=== PATIENT | female | born 2000 | race Two or more races ===

== ENCOUNTER 2024-03-30 04:08 | Inpatient (IN) | payer OTHER, SELFPAY ==
[2024-03-30] VITALS (86 sets, daily range): BP systolic 94–127; BP diastolic 52–81; PULSE 71–217; RESP 16–20; TEMP 36.6–37.2; O2SAT 89–100; BMI 27.3
--- NOTE | 2024-03-30 05:19 | LDADM ---
This patient, Codie Mayer, was admitted to Labor/Delivery/Recovery 106 on 03/30/24 at 04:08. Plans for labor, pain management and were discussed with patient. Patient/family oriented to hospital policies and general routines including ID bracelet, bed and alarms, visiting hours, pain management, procedures, bathroom and other care routines, personal items, smoking policy, room service/diet and guest tray routines, infant security routines, and visiting hours. Patient/Family are encouraged to report perceived risks to care and to ask questions if they do not understand what they are told or what they should do. See OBIX for further documentation.
[2024-03-30 05:22] LABS: Basophils Percent Auto 0.3 % (0.2-1.2); Eosinophils Percent Auto 0.3 % (0-4.4); Hematocrit 31.2 % (37.0-47.0); Hemoglobin 10.3 g/dL (12.0-15.0); Immature Granulocyte Absolute 0.11 K/mm3 (0.00-0.031); Lymphocytes Percent Auto 16.1 % (18.3-44.2); Mean Corpuscular Hemoglobin 24.9 pg (26-34); Mean Corpuscular Volume 75.4 fl (80-100); Mean Platelet Volume 10.2 fl (7.4-10.4); Monocytes Absolute Auto 0.5 K/mm3 (0.1-0.6); Monocytes Percent Auto 4.6 % (2.6-8.5); Neutrophils Absolute Auto 8.7 K/mm3 (1.3-6.7); Neutrophils Percent Auto 77.7 % (45.5-73.1); Platelet Count Result 206 k/mm3 (150-375); Red Blood Count 4.14 M/mm3 (4.2-5.4); Red Cell Distribution Width 13.6 % (11.5-14.5); White Blood Count 11.2 K/mm3 (4.5-10.0)
[2024-03-30] MEDS: fentaNYL CITRATE INJ (*CRX) 100 MCG/2 ML VIAL 50 MCG IV PUSH ×3 (05:45→07:53)
[2024-03-30] MEDS: ONDANSETRON INJ 4 MG/2 ML VIAL IV PUSH (07:57)
--- NOTE | 2024-03-30 10:34 | PM.IMHP ---
H&P: HPI History of Present Illness Date/Time: 03/30/24 10:34 Chief Complaint: labor Narrative: Patient is a 23 year old who presents at 39w4d for regular contractions starting at 2300 last night. She denies LOF or VB. Good movement. has been complicated by anemia, patient declines IV Fe infusions after failing PO Fe supplementation. OTherwise uncomplicated . Denies headaches, vision changes, chest pain, dyspnea, RUQ pain or epigastric pain. Review of Systems Review of Systems: All systems reviewed & are unremarkable except as noted in HPI and below PMFSH Family History Family History Other Patient denies significant medical history Social History Social History Smoking status: Never smoker Second hand tobacco smoke exposure: No Substance use: never Do You Feel Safe in your Home?: Yes Lack of Transportation: No Lack of Food: Never True Current Housing: I Have Housing Concerned About Future Housing: No Difficulty Paying Gas/Electric Bills: No Difficulty Paying for Meds: No Currently Unemployed: No Education: High School Diploma/GED Difficulty w/ Childcare or Family Care: No Spiritual care concerns: No Meds Home Medications and Allergies Home Medications Medication Instructions Recorded Confirmed Type prenat.vits,tangela,[id number] 1 tablet 03/06/24 History Allergies Allergy/AdvReac Type Severity Reaction Status Date / Time No Known Allergies Allergy Verified 02/27/24 09:46 Vital Signs Vital Signs - 24 hr 03/30/24 04:29 03/30/24 04:44 03/30/24 05:41 Temperature Pulse Rate 96 103 H Respiratory Rate Blood Pressure 112/70 109/80 Pulse Oximetry 100 03/30/24 05:44 03/30/24 05:46 03/30/24 05:49 Temperature Pulse Rate 108 H Respiratory Rate Blood Pressure 94/52 L Pulse Oximetry 98 100 100 03/30/24 05:54 03/30/24 05:59 03/30/24 06:04 Temperature Pulse Rate 96 Respiratory Rate Blood Pressure 107/77 Pulse Oximetry 97 98 100 03/30/24 06:09 03/30/24 06:14 03/30/24 06:19 Temperature Pulse Rate 92 Respiratory Rate Blood Pressure 104/81 Pulse Oximetry 99 95 100 03/30/24 06:22 03/30/24 06:27 03/30/24 06:29 Temperature Pulse Rate 99 Respiratory Rate Blood Pressure 106/79 Pulse Oximetry 100 99 03/30/24 06:32 03/30/24 06:37 03/30/24 06:42 Temperature Pulse Rate Respiratory Rate Blood Pressure Pulse Oximetry 100 99 99 03/30/24 06:44 03/30/24 06:47 03/30/24 06:52 Temperature Pulse Rate 80 Respiratory Rate Blood Pressure 102/64 Pulse Oximetry 98 98 03/30/24 06:57 03/30/24 06:59 03/30/24 07:02 Temperature Pulse Rate 84 Respiratory Rate Blood Pressure 107/69 Pulse Oximetry 98 99 03/30/24 07:07 03/30/24 07:12 03/30/24 07:14 Temperature Pulse Rate 102 H Respiratory Rate Blood Pressure 114/73 Pulse Oximetry 96 99 03/30/24 07:17 03/30/24 07:00 03/30/24 07:33 Temperature 97.8 F Pulse Rate Respiratory Rate 18 Blood Pressure Pulse Oximetry 100 99 03/30/24 07:38 03/30/24 07:45 03/30/24 07:50 Temperature Pulse Rate Respiratory Rate Blood Pressure Pulse Oximetry 99 96 96 03/30/24 07:55 03/30/24 08:00 03/30/24 08:05 Temperature Pulse Rate Respiratory Rate Blood Pressure Pulse Oximetry 98 95 96 03/30/24 08:10 03/30/24 08:15 03/30/24 08:20 Temperature Pulse Rate Respiratory Rate Blood Pressure Pulse Oximetry 95 95 95 03/30/24 08:25 03/30/24 08:30 03/30/24 08:35 Temperature Pulse Rate Respiratory Rate Blood Pressure Pulse Oximetry 96 96 95 03/30/24 08:40 03/30/24 08:45 03/30/24 08:50 Temperature Pulse Rate Respiratory Rate Blood Pressure Pulse Oximetry 99 96 97 03/30/24 08:55 03/03
[2024-03-30] MEDS: OXYTOCIN 30 UNITS/NS 500 ML 30 UNITS/500 ML BAG 999 UNITS IV CONT (12:58)
--- NOTE | 2024-03-30 13:28 | PM.OBPRVD ---
OB - Vaginal Delivery Note Procedure Delivery date: 03/30/24 Delivery augmentation: Rupture of Membranes Delivery monitor: External FHT and External Uterine Route of delivery: Episiotomy description: None Laceration Description: Periurethral (hemostatic) Specimen: No Quantitative Blood Loss (ml): 150 Anesthesia type: None Disposition: Floor Complications: No immediate complications Narrative: See H&P and notes for details on patient's admission and labor. She progressed to complete cervical dilation and at the appropriate time began pushing. With adequate expulsive efforts by the mother, the baby's head was delivered without difficulty. Nuchal cord was not present. The baby's right shoulder was anterior and delivered under the pubic symphysis without difficulty. The posterior shoulder and the rest of the baby delivered without difficulty. The umbilical cord was doubly clamped and cut after 60 seconds of delayed cord clamping. Care of the was then assumed by the nursing staff. Mother and are at this time in stable condition and doing well. Baby Date of : 03/30/24 Weeks of gestation at delivery: 39 gender: Female presentation: vertex position: Left Occiput Anterior Placenta delivery description: Spontaneous Cord Vessel Description: 3 Vessels
[2024-03-30] MEDS: OXYTOCIN 30 UNITS/NS 500 ML 30 UNITS/500 ML BAG 125 UNITS IV CONT (13:33)
[2024-03-30 14:28] LABS: Rapid Plasma Reagin Non-Reactive (NonReactive)
[2024-03-30] MEDS: BENZOCAINE 20% AER SPR (*SP) 56 GM CAN 1 SPRAY TOPICAL (15:04)
[2024-03-30] MEDS: WITCH HAZEL 40 PADS 1 PAD TOPICAL (15:04)
--- NOTE | 2024-03-30 15:25 | PC.NURSE ---
Patient transferred to post room #292 via wheelchair. Support person present. Oriented to unit, room, information board, rooming in, admission packet and security measures. Patient verbalizes understanding.
[2024-03-30] MEDS: IBUPROFEN 600 MG TABLET PO ×2 (16:08→22:00)
[2024-03-30] MEDS: ACETAMINOPHEN 325 MG TABLET 650 MG PO (23:22)
[2024-03-31] MEDS: IBUPROFEN 600 MG TABLET PO ×3 (04:41→23:12)
[2024-03-31] MEDS: ACETAMINOPHEN 325 MG TABLET 650 MG PO ×2 (04:42→11:18)
[2024-03-31 07:45] VITALS: BP 93/48; PULSE 89; RESP 16; TEMP 36.7; O2SAT 99
[2024-03-31] MEDS: POLYSACCHARIDE IRON COMPLEX 150 MG CAPSULE PO ×2 (08:49→16:25)
[2024-03-31] MEDS: MULTIVIT/MIN/PREN/FOL AC/IRON TABLET 1 TAB PO (08:49)
[2024-03-31] MEDS: DOCUSATE SODIUM 100 MG CAPSULE PO ×2 (08:49→16:25)
[2024-03-31 08:52] LABS: Hematocrit 28.4 % (37.0-47.0); Hemoglobin 7.8 g/dL (12.0-15.0)
--- NOTE | 2024-03-31 11:20 | PC.NURSE ---
1000 - 1025 Mother verbalizes she is able to independently latch with appropriate positioning, alignment and demonstrating effective on the left breast using cradle positioning. She denies any nipple discomfort, responsively and when self detached the nipple was not misshaped. is currently meeting outcomes for weight, output, jaundice, blood sugar and feeding frequencies of 8-12 times in 24 hours. Mother declines any additional assistance or education at this time. Mother is encouraged to call for assistance if her infant doesn?t latch, pain with latching, questions, concerns or inpatient services. Mother voiced understanding of information shared along with the feeding sheet and the mom/baby guide for an additional resources. Reported to the Primary RN.
--- NOTE | 2024-03-31 14:06 | PM.OBPNVD ---
OB - PN: Subj Subjective Date/time seen: 03/31/24 0815 Interval history: PPD#1 Doing well, minimal pain Bleeding well controlled , doing well OB - PN: Obj Data Labs 03/31/24 04:07 Labs: Laboratory Results - last 24 hr 03/30/24 03/31/24 05:11 04:07 Hgb 7.8 L Hct 28.4 L RPR Non-reactive OB - PN A/P Plan day: 1 Plan: routine care Time Spent With Patient Time: Total time spent is greater than 50% in coordination of care (as documented) at patient's floor/unit and/or counseling patient: Review of Systems Review of Systems: All systems reviewed & are unremarkable except as noted in HPI and below Exam Const: General: comfortable and no acute distress HENMT: Mouth: Yes moist mucous membranes Eyes: General: appearance normal, both eyes and all related structures Resp: Effort & Inspection: normal respiratory effort
--- NOTE | 2024-03-31 15:44 | PC.NURSE ---
[id number] Purposefully rounded to assess for needs. Mother shared she is latching independently with no pain, however; there's tenderness. Reinforced education regarding signs of an effective latch vs non effective latch along with expectations of what to watch and look for. Mother has S2S and is confident with her ability to breastfeed effectively. Parents voiced understanding that will possibly breastfeed 1-3 hours and to not let go longer than 4 hours without . Mother shared that staff took from the room early in the morning hours and had the infant longer than she expected. Reminded mother to request an opportunity to breastfeed if it has been 3 hours and staff wants to take to the nursery. Empowered parents to advocate for their infant to be fed 8-12 times in a 24 hour period. Parents voiced understanding of the education.
[2024-03-31 18:49] VITALS: BP 121/65; PULSE 93; RESP 16; TEMP 37; O2SAT 100
--- NOTE | 2024-04-01 08:26 | PM.OBPNVD ---
OB - PN: Subj Subjective Date/time seen: 04/01/24 08:26 Interval history: PPD#2 Doing well Bleeding well controlled , doing well Emptying bladder without issue Ready for discharge home today OB - PN: Obj Data Labs 03/31/24 04:07 Labs: Laboratory Results - last 24 hr 03/31/24 04:07 Hgb 7.8 L Hct 28.4 L OB - PN A/P Assessment and Plan (1) (spontaneous vaginal delivery): Code(s): O80 - Encounter for full-term uncomplicated delivery Status: Acute Plan day: 2 Plan: routine care and discharge home Time Spent With Patient Time: Total time spent is greater than 50% in coordination of care (as documented) at patient's floor/unit and/or counseling patient: Review of Systems Review of Systems: All systems reviewed & are unremarkable except as noted in HPI and below Exam Const: General: comfortable and no acute distress HENMT: Mouth: Yes moist mucous membranes Eyes: General: appearance normal, both eyes and all related structures Resp: Effort & Inspection: normal respiratory effort
--- NOTE | 2024-04-01 08:33 | PM.OBDSVD ---
DS: Admitting Diagnosis Discharge Date 04/01/24 Admitting Diagnosis active labor DS: Discharge Diagnosis Discharge Diagnosis (1) (spontaneous vaginal delivery): Code(s): O80 - Encounter for full-term uncomplicated delivery Status: Acute (2) Anemia affecting : Code(s): O99.019 - Anemia complicating , unspecified trimester Status: Acute OB - DS: Summary OB Procedures : None OB Procedures Intrapartum: Spontaneous Vag Delivery OB Procedures: : None Peripartum Data Laceration Description: Periurethral (hemostatic) Episiotomy description: None Time Spent with Patient Time attestation: Total time spent providing and/or coordinating discharge services: DS: Data Data Completed and Pending Labs on day of discharge: Labs from last 24 hours 03/31/24 04:07 Hgb 7.8 L Hct 28.4 L Discharge Plan Discharge Attending physician on discharge: Miguel Giraldo Discharging Clinician: Miguel Giraldo Patient Disposition: Home, Self-Care Activity: may shower and pelvic rest Diet: as tolerated Discharge Instructions: Education: Mom and Baby Guide Given to: Mother Follow-Up: Call your delivering provider's office for an appointment to be seen in: 4 Weeks Mom and baby should come to the [facility] for the follow-up appointment. Appointment Date/Time: April 02, 2024 at 8:00 am What to expect at your follow-up visit: Blood Pressure Check Physical Assessment Call [phone] if you are unable to keep your appointment time. BREAST CARE: * Wear a snug supportive bra. * For engorgement discomfort: Breast Feeding: * Apply warm moist washcloths * Express milk as needed to relieve engorgement * Wear loose clothing * For sore nipples: * Identify correct latch-on * Apply warm moist washcloths before and after nursing * Air dry nipples after nursing * May apply Lansinoh cream to nipples PERINEAL CARE: * Until bleeding stops, use your yves bottle after urinating * Change your pad frequently throughout the day * You may take sitz baths several times a day (fill your bathtub with warm water and soak for 20 minutes.) Do NOT bathe in the water * No tub baths until seen by your physician - You may shower ACTIVITY: * Rest as much as possible. * Do not exercise or lift anything heavier than your baby (such as laundry or other children.) * Avoid stairs or driving as much as possible. * Do not put anything into the vagina. No douching, tampons, or sexual activity until seen by physician. NOTIFY PHYSICIAN IF YOU HAVE ANY QUESTIONS OR IF ANY OF THE FOLLOWING SYMPTOMS OCCUR: * If your vaginal bleeding becomes foul smelling. * If your vaginal bleeding becomes more heavy than a period or if your bleeding changes from pink to bright red. However, you may pass an occasional walnut-sized clot once or twice for the first week . * If you experience a sharp, shooting pain in your calves. * If you discover a hard, reddened area on your breast or if you experience flu-like symptoms. DIET: * Eat regular, well-balanced meals. * Drink plenty of fluids daily. If , drink to thirst. Stand Alone Forms: General Discharge Information Follow-up/Referrals: Miguel Giraldo MD [Physician] - 4 Weeks Discharge Medications: New docusate sodium 100 mg Capsule 100 mg PO BID PRN (Reason: Constipation) Qty: 60 0RF ibuprofen 600 mg Tablet 600 mg PO Q6H PRN (Reason: Cramping) Qty: 30 0RF Continued prenat.vits,tangela,[id number] Tablet 1 tablet Date of admission: 03/30/24 04:08 Primary Care Provider: UNKNOWN,DOCTOR Admitting Provider: Mindi Em Attending physician on admission: Miguel Giraldo Condition: Stable
[2024-04-01 08:35] VITALS: BP 113/71; PULSE 79; RESP 18; TEMP 36.8; O2SAT 100
[2024-04-01] MEDS: MULTIVIT/MIN/PREN/FOL AC/IRON TABLET 1 TAB PO (08:54)
[2024-04-01] MEDS: DOCUSATE SODIUM 100 MG CAPSULE PO (08:54)
[2024-04-01] MEDS: POLYSACCHARIDE IRON COMPLEX 150 MG CAPSULE PO (08:54)
[2024-04-01] MEDS: IBUPROFEN 600 MG TABLET PO (08:55)
--- NOTE | 2024-04-01 09:10 | PC.NURSE ---
Patient viewed the discharge video Mother & Baby Care, The First Two Weeks . Patient was given the opportunity and encouraged to ask questions. Patient verbalized understanding of information shared and has been given the mother/baby guide for home reference.
[2024-04-02 08:27] VITALS: BP 110/64; PULSE 87; RESP 18; TEMP 36.7; O2SAT 99
== END 2024-04-01 11:40 | disposition home or self-care (01) | DRG 807 ==
LOC: ANHLDR 04:28 → ANHOB2 15:25
PROVIDERS: Admitting Provider Obstetrics & Gynecology; Visit Provider Obstetrics & Gynecology
DX: O99.02 Anemia complicating childbirth (principal); Z37.0 Single live birth; Z3A.39 39 weeks gestation of pregnancy; O71.82 Other specified trauma to perineum and vulva; D64.9 Anemia, unspecified
CPT/HCPCS: 36415; 85014; 85018; 85025; 86592; 86850; 86900; 86901; A9270; J2405; J2590; J3010

== ENCOUNTER 2024-04-13 15:02 | Emergency (ER) | payer OTHER, SELFPAY ==
--- NOTE | 2024-04-13 15:04 | ED.SKABFB ---
HPI - Skin/Abscess/Foreign Bdy General Chief complaint: Skin/Abscess/Foreign Body Stated complaint: Hives Source: patient and RN notes reviewed Mode of arrival: ambulatory Limitations: no limitations History of Present Illness HPI narrative: Patient is a 23-year-old female who presents to the [facility] with complaints hives. Patient states that she gave to a full-term baby girl 2 weeks ago. She states that she has been experiencing hives since. She states that initially she would have hives to 1 buttock then the next, then the hives moved to legs and arms. Patient presents with hives to bilateral legs and arms at this time. She denies new soaps, detergents, lotions, medications, food. She is unsure what is causing the hives. She denies shortness of breath or trouble breathing. Related Data Allergies Allergy/AdvReac Type Severity Reaction Status Date / Time No Known Allergies Allergy Verified 04/13/24 15:11 Review of Systems Review of Systems: CONSTITUTIONAL: Denies fever, chills, or sweats. EYES: Denies visual changes, redness, or discharge. ENT: Denies otalgia and sore throat CARDIOVASCULAR: Denies chest pain, palpitations, or edema. RESPIRATORY: Denies cough or dyspnea. GASTROINTESTINAL: Denies abdominal pain, nausea, vomiting, or diarrhea. GENITOURINARY: Denies dysuria or hematuria. SKIN: Reports rash and itching. MUSCULOSKELETAL: Denies back pain, joint pain, or myalgia. NEUROLOGIC: Denies headache, numbness, or weakness. Pertinent positives per HPI. PENDING SALE TO [facility] Family History Family History Other Patient denies significant medical history Social History Social History Smoking status: Never smoker Second hand tobacco smoke exposure: No Substance use: never Do You Feel Safe in your Home?: Yes Lack of Transportation: No Lack of Food: Never True Current Housing: I Have Housing Concerned About Future Housing: No Difficulty Paying Gas/Electric Bills: No Difficulty Paying for Meds: No Currently Unemployed: No Education: High School Diploma/GED Difficulty w/ Childcare or Family Care: No Spiritual care concerns: No Comments At the time of my signature, I reviewed and agree with the nursing past medical, surgical, social, and family history. There is no relevant family history pertinent to the patient complaint. Exam Narrative: GENERAL: This is a well-nourished, well-developed patient, in no apparent distress. HEAD: normocephalic, atraumatic. EYES: Sclera clear/white. Vision is grossly intact. EARS: External ears normal. Hearing grossly intact. NOSE: External nose normal with no obvious nasal discharge, nares without redness, no rhinorrhea. THROAT: Mucous membranes moist, posterior pharynx clear. NECK: Neck supple, non-tender without lymphadenopathy, masses or thyromegaly. CARDIOVASCULAR: Regular rate and rhythm without murmurs, gallops, or rubs. RESPIRATORY: Clear to auscultation. Breath sounds equal bilaterally. No wheezes, rales, or rhonchi. GASTROINTESTINAL: Abdomen soft, non-tender, nondistended. Bowel sounds are active. No hepato-splenomegaly, or palpable masses. No guarding. SKIN: warm, intact. Urticaria noted to bilateral upper and lower extremities. NEURO: awake, alert, and oriented to person, place and time. There were no obvious focal neurologic abnormalities. EXTREMITIES: No clubbing, cyanosis, or edema. No joint tenderness, effusion, or edema noted. BACK: Nontender without deformity or crepitance. No flank tenderness. Course Course Level of Care: Express Care Visit Vital Signs Vital signs: Vital Signs Temperature 98.3 F 04/13/24 15:07 Pulse Rate 85 04/13/24 15:07 Respiratory Rate 16 04/13/24 15:07 Blood Pressure 105/67 04/13/24 15:07 Pulse Oximetry 99 04/13/24 15:07 Oxygen Delivery Room Air 04/13/24 15:07 Temperature
[2024-04-13 15:07] VITALS: BP 105/67; PULSE 85; RESP 16; TEMP 36.8; O2SAT 99
== END 2024-04-13 15:28 | disposition home or self-care (01) ==
PROVIDERS: Emergency Provider Nurse Practitioner
DX: L50.9 Urticaria, unspecified (principal)
CPT/HCPCS: 99213; G0463